=== PATIENT | female | born 1950 | race Caucasian/White ===

== ENCOUNTER 2017-05-28 15:32 | Inpatient (IN) | payer OTHER ==
--- NOTE | 2017-05-24 17:45 | PREOPHP ---
DATE OF ADMISSION: 05/30/2017 PREOPERATIVE INTERNAL MEDICINE CONSULTATION AND MEDICAL HISTORY AND PHYSICAL: The patient to have surgery with Dr. Silvia Mccann on 05/30/2017. REASON FOR CONSULTATION: Consultation requested by Dr. Silvia Mccann for medical evaluation and clearance of a 66-year-old woman about to undergo surgery. Thank you, Dr. Mccann, for allowing us to participate in the care of this patient. HISTORY OF PRESENT ILLNESS: Malachi Corrigan is a 66-year-old woman. Issues with her shoulder, has been diagnosed with a rotator cuff tear on the left shoulder.. Had prior arthroscopic surgery on that shoulder and currently is going to be admitted for a shoulder replacement to reverse total shoulder replacement on the left shoulder. PAST SURGICAL HISTORY: She has had arthroscopic surgery, right and left knee. Right x1, left knee x2, ACL repair left knee x2, rotator cuff surgery, arthroscopic left x2, right x1, and she has also had a total knee replacement on the right. Her pregnancies had vaginal delivery. She has had no medical hospitalizations. She has not broken any big bones. She only takes p.r.n. medications. ALLERGIES: NOT ALLERGIC TO ANY MEDICATIONS, BUT HAS SOME ENVIRONMENTAL ALLERGIES. SOCIAL HISTORY: The patient is , has 2 children. She does not smoke or drink alcohol or coffee. Has no difficulty sleeping at night and works as a teacher. FAMILY HISTORY: Both parents are . Father at age 54 of an IA. Mother age 75 of an IA. Four siblings are in good health. Family history of heart. She knows of no diabetes, cancer, hypertension or stroke. REVIEW OF SYSTEMS HEENT: Periodic headaches. CARDIORESPIRATORY: Denies any chest pain or shortness of breath. GASTROINTESTINAL: No melena or hematemesis. GENITOURINARY: No urgency or frequency. GYNECOLOGIC: Postmenopause, up to date with her skin therapist. MUSCULOSKELETAL: Positive for left shoulder pain. NEUROPSYCHIATRIC: Unremarkable. GENERAL HEALTH: As above. PHYSICAL EXAMINATION: VITAL SIGNS: The patient's blood pressure was 140/80, pulse was 62 and regular , respirations were 18, temperature 98.1. Height 5 feet 2 inches, weight 124 pounds. GENERAL: The patient was noted to be a well-developed, well-nourished female, alert and cooperative, in no apparent acute distress, oriented to time, place, and person. HEAD, EARS, EYES, NOSE AND THROAT: Head was atraumatic. Eyes: Pupils were equal, reactive to light and accommodation. Fundi were benign. Tympanic membranes were unremarkable. Nose was negative. Mouth was unremarkable. Fair oral hygiene was present. NECK: Supple without any rigidity. Trachea was midline. Thyroid was unremarkable. Neck veins were flat. Carotid pulses were equal. No bruits were heard. BACK: Unremarkable. CHEST: Symmetrical. BREASTS AND AXILLARY: Did not reveal any masses. LUNGS: Clear to percussion and auscultation. HEART: PMI is fifth intercostal space at the midclavicular line. Regular sinus rhythm was noted. No significant murmurs, rubs, or gallops being elicited. ABDOMEN: Soft, good bowel sounds were noted. No significant organomegaly, masses, or tenderness. PELVIC/RECTAL: Per skin therapist, up to date. EXTREMITIES: Not revealing clubbing, edema or cyanosis. Scar was noted from prior surgery. Peripheral pulses were physiologic. SKIN: Moist and warm without any eruptions. No gross lymphadenopathy was noted. NEUROLOGIC: Grossly intact. IMPRESSION: 1. Torn rotator cuff, left shoulder status post several arthroscopic surgeries on the left shoulder. 2. Postmenopause. 3. Stable health. LABORATORY DATA: Review of laboratory and other data revealed the following: The patient's chemistry panel including electrolytes, glucose, BUN, creatinine and liver function tests, magnesium, serum iron, CBC, sed rate, UA, PT and PTT were normal. The patient's chest x-ray was normal, as was her EKG. DISCUSSION: Dr. Mccann, I see no contraindication in this patient undergoing current proposed surgery under desired form of anesthesia and will be happy to follow her, her along with you during her stay at [facility]. Thank you again, Dr. Mccann, for allowing us to participate in the care of this pleasant patient. Dictated By: ANGEL BRADSHAW MD SS/MEY Conf#: [id number] DID#: [id number] CC: SILVIA MCCANN MD;*EndCC* MTDD
[~2017-05-28] VITALS: Ht 157.5 cm; Wt 56.0 kg
[2017-05-29 09:53] VITALS: BMI 22.2
[2017-05-30] VITALS (21 sets, daily range): BP systolic 114–159; BP diastolic 51–77; PULSE 62–87; RESP 13–26; Ht 157.5 cm; Wt 56.0 kg
[2017-05-30] MEDS ORDERED: POLYMYXIN/BACITRACIN 1L IRRIG ONE (08:48)
[2017-05-30] MEDS ORDERED: THROMBIN 5000 UNIT VIAL ONE (08:48)
[2017-05-30] MEDS ORDERED: BUPIVACAINE 0.5%/EPI (SDV) 30 ML INJ ONE (08:48)
[2017-05-30] MEDS ORDERED: CA CHLORIDE 10% 10 ML SYRINGE ONE (08:48)
[2017-05-30] MEDS ORDERED: GABAPENTIN 300 MG CAP PO SCH ×2 (09:00→21:00)
[2017-05-30] MEDS ORDERED: traMADol 50 MG TAB PO SCH (09:00)
[2017-05-30] MEDS ORDERED: CEFAZOLIN 2 GM/50 ML (PMX) 50 ML IVPB SCH (09:00)
[2017-05-30] MEDS ORDERED: TRANEXAMIC ACID 1,000 MG in SOD CHLORIDE 0.9% 100 ML IVPB SCH (09:00)
[2017-05-30] MEDS ORDERED: DEXAMETHASONE 1 MG TAB PO SCH (09:00)
--- NOTE | 2017-05-30 09:11 | HPN ---
Date/Time of Note Date/Time of Note DATE: 05/30/17 TIME: 09:10 Interval H&P Admission Note Pt. seen H&P reviewed: No system changes SILVIA MCCANN MD May 30, 2017 09:11
[2017-05-30] MEDS ORDERED: MIDAZOLAM 1 MG/ML 2 ML INJ ONE (09:37)
[2017-05-30] MEDS ORDERED: ROPIVACAINE 0.5 % 30 ML VIAL ONE (09:37)
[2017-05-30] MEDS ORDERED: PHENYLephrine (100 MCG/ML) 5ML SYG ONE (09:59)
[2017-05-30] MEDS ORDERED: BUPIVACAINE 0.5%/EPI (SDV) 30 ML INJ INJ ONE (10:02)
[2017-05-30] MEDS ORDERED: LIDOCAINE 2% (SDV) 5 ML INJ ONE (10:07)
[2017-05-30] MEDS ORDERED: SUCCINYLCHOLINE CHLORIDE 100 MG/5 ML SYG IV ONE (10:07)
[2017-05-30] MEDS ORDERED: ROCURONIUM 50 MG INJ ONE (10:07)
[2017-05-30] MEDS ORDERED: PROPOFOL 20 ML ONE (10:07)
[2017-05-30] MEDS ORDERED: GLYCOPYRROLATE 0.4 MG INJ ONE (10:08)
[2017-05-30] MEDS ORDERED: NEOSTIGMINE 3 MG/3 ML SYRINGE ONE (10:08)
[2017-05-30] MEDS ORDERED: CEFAZOLIN 1 GM INJ ONE (10:08)
[2017-05-30] MEDS ORDERED: METOCLOPRAMIDE 10 MG INJ IV PRN (10:30)
[2017-05-30] MEDS ORDERED: HYDROmorphONE (0.2 MG/ML) 10ML SYG IV PRN ×2 (10:30)
[2017-05-30] MEDS ORDERED: FENTAnyl 50 MCG/ML VIAL IV PRN ×2 (10:30)
[2017-05-30] MEDS ORDERED: DIPHENHYDRAMINE 50 MG INJ IV PRN ×2 (10:30→11:30)
[2017-05-30] MEDS ORDERED: ONDANSETRON 4 MG INJ IV PRN (10:30)
[2017-05-30] MEDS ORDERED: MEPERIDINE 25 MG INJ IV PRN (10:30)
--- NOTE | 2017-05-30 11:18 | OPR ---
Date/Time of Note Date/Time of Note DATE: 05/30/17 TIME: 11:15 Operative Report Free Text/Dictation May 30, 2017 Surgeon: Silvia Mccann MD Stabber: None Procedure in detail: Following the administration of general endotracheal anesthesia supplemented with a scalene block, the patient was placed in the beachchair position. The left upper extremity was prepped and draped in the usual sterile fashion. A deltopectoral incision was then undertaking exposing the conjoined tendon and retracting it medially. The subscapularis was then incised as well as the bicipital groove. The biceps was seen to be nearly completyly torn and severely frayed. The superior and posterior cuff was completely deficient and retracted. Multiple suture anchors were noted. The remaining subscapularis was then detached and the shoulder evaluated. Severe arthritic changes were noted on both sides of the joint. Peripheral osteophytes were removed and a humeral head cut was then made in the appropriate degree of version and inclination. The glenoid was then exposed peripheral osteophytes and a capsulectomy was then completed. A standard Depuy baseplate was then applied. 4 peripheral screws were then applied with good fixation. A 36 mm glenoid sphere was then applied with solid fixation. The humerus was then reamed up to the 10 mm size and a Depuy component was then placed with 6 mm liner. Solid fixation was obtained the joint was taken through full range of motion with no instability. The joint was thoroughly irrigated closed using running sutures followed by a Prenio dressing. A watertight closure was obtained. An UltraSling was then placed. The patient was awakened and transported to recovery in stable condition tolerated procedure well estimated blood loss for the procedure was 100 cc. Postoperative radiographs will be obtained in the recovery room. Preoperative Diagnosis Left shoulder posttraumatic osteoarthritis Postoperative Diagnosis Left shoulder posttraumatic osteoarthritis Operation Performed Left reverse total shoulder replacement Anesthesia: general Estimated Blood Loss: 50 - 100 ml's Complications: None Pt Condition Post Procedure: stable Disposition: PACU SILVIA MCCANN MD May 30, 2017 11:18
[2017-05-30] MEDS ORDERED: ACETAMINOPHEN 500 MG TAB PO PRN (11:30)
[2017-05-30] MEDS ORDERED: KETOROLAC 15 MG INJ IV PRN (11:30)
[2017-05-30] MEDS ORDERED: TRANEXAMIC ACID 1,000 MG in SOD CHLORIDE 0.9% 100 ML IV ONE (11:30)
[2017-05-30] MEDS ORDERED: MAGNESIUM HYDROXIDE 30ML CUP PO PRN (11:30)
[2017-05-30] MEDS ORDERED: morphine 4 MG/ML VIAL IV PRN (11:30)
[2017-05-30] MEDS ORDERED: ZOLPIDEM 5 MG TAB PO PRN (11:30)
[2017-05-30] MEDS ORDERED: morphine 2 MG INJ IV PRN (11:30)
[2017-05-30] MEDS ORDERED: OXYCODONE/ACETAMINOPHEN (5/325) TAB PO PRN (11:30)
--- NOTE | 2017-05-30 11:51 | RADRPT ---
PROCEDURE: XR Left Shoulder. CLINICAL INDICATION: Left shoulder pain. Postop. TECHNIQUE: Two views. Frontal and oblique. COMPARISON: No prior study is available for comparison. FINDINGS: There is a left shoulder reverse arthroplasty. This appears satisfactory. There is no fracture, dislocation, or loosening. Gas is present in the soft tissues related to the recent surgery. IMPRESSION: 1. Satisfactory postoperative appearance of the left shoulder. RPTAT: QQ .Joao Loza MD, MD Date Time Electronically viewed and signed by .Joao Loza MD, MD on 05/30/2017 11:50 .R/
[2017-05-30] MEDS: CEFAZOLIN 1 GM/50 ML (PMX) 50 ML IVPB SCH ×2 (12:16→19:02)
[2017-05-30] MEDS: DEXAMETHASONE 2 MG TAB PO SCH ×3 (13:10→23:57)
--- NOTE | 2017-05-30 13:27 | PN ---
Date/Time of Note Date/Time of Note DATE: 05/30/17 TIME: 13:18 Assessment/Plan VTE Prophylaxis VTE Prophylaxis Intervention: ambulation Lines/Catheters IV Catheter Type (from Nrsg): Peripheral IV Assessment/Plan Chief Complaint/Hosp Course post op tsr left Problems: Assessment/Plan medically stable will follow medically thank you berny branch Subjective 24 Hr Interval Summary Free Text/Dictation post-op in recovery room alert knows my name waiting for a room Constitutional: no complaints Eyes: no complaints ENT: no complaints Respiratory: no complaints Cardiovascular: no complaints Gastrointestinal: no complaints Genitourinary: no complaints Musculoskeletal: restricted range of motion Skin: no complaints Neurologic: no complaints Psychological: no complaints Immunologic: no complaints Exam/Review of Systems Vital Signs Vitals Vital Signs Date Time Temp Pulse Resp B/P Pulse Ox O2 Delivery O2 Flow Rate FiO2 05/30/17 12:32 64 25 143/70 96 Room Air 05/30/17 11:22 98.3 Exam Neck: supple Respiratory: clear to auscultation Cardiovascular: regular rate and rhythm Musculoskeletal: range of motion Skin: nl turgor, No rash or lesions Additional Comments s/p total shoulder replacement left shoulde Medications Medications Current Medications Cefazolin Sodium (Ancef 1 Gm/50 ml (Pmx)) 50 ml @ 100 mls/hr Q8H IVPB Last administered on 05/30/17 12:16; Admin Dose 100 MLS/HR; Start 05/30/17 at 11:30 ; Stop 05/31/17 at 03:59 Senna/Docusate Sodium (Senokot-S) 1 tab BID PO ; Start 05/30/17 at 21:00 Simethicone (Mylicon) 80 mg TID PRN PO DISTENSION/GAS/BLOATING; Start 05/30/17 at 11:30 Magnesium Hydroxide (Milk Of Mag) 30 ml BID PRN PO CONSTIPATION; Start at 11:30 Acetaminophen (Tylenol Tab) 1,000 mg Q4H PRN PO TEMP GREATER THAN 100.4F; Start 05/30/17 at 11:30 Dexamethasone (Decadron) 2 mg Q6 PO Last administered on 05/30/17 13:10; Admin Dose 2 MG; Start 05/30/17 at 12:00; Stop 05/31/17 at 06:01 Gabapentin (Neurontin) 300 mg HS PO ; Start 05/30/17 at 21:00 Oxycodone/ Acetaminophen (Percocet (5/ 325)) 1 tab Q4H PRN PO PAIN LEVEL 1-5; Start 05/30/17 at 11:30 Oxycodone/ Acetaminophen (Percocet (5/ 325)) 2 tab Q4H PRN PO PAIN LEVEL 6-10; Start 05/30/17 at 11:30 Morphine Sulfate (morphine) 2 mg Q2H PRN IV PAIN LEVEL 1-5; Start 05/30/17 at 11:30 Morphine Sulfate (morphine) 4 mg Q4H PRN IV PAIN LEVEL 6-10; Start 05/30/17 at 11:30 Ketorolac Tromethamine (Toradol) 15 mg Q6H PRN IV PAIN; Start 05/30/17 at 11:30 ; Stop 06/02/17 at 11:29 Ondansetron HCl (Zofran Inj) 4 mg Q6H PRN IV NAUSEA AND/OR VOMITING; Start at 11:30 Diphenhydramine HCl (Benadryl) 25 mg Q6H PRN IV PRURITUS; Start 05/30/17 at 11: 30 Aspirin (Aspirin) 81 mg DAILY PO ; Start 05/31/17 at 09:00 ANGEL BRADSHAW MD May 30, 2017 13:27
[2017-05-30] MEDS: ONDANSETRON 4 MG INJ IV PRN (20:35)
[2017-05-30] MEDS: OXYCODONE/ACETAMINOPHEN (5/325) TAB PO PRN (21:39)
[2017-05-30] MEDS: SENNA/DOCUSATE NA (8.6MG/50MG) TAB PO SCH (21:39)
[2017-05-31] MEDS: ONDANSETRON 4 MG INJ IV PRN (02:59)
[2017-05-31] MEDS: CEFAZOLIN 1 GM/50 ML (PMX) 50 ML IVPB SCH (03:37)
--- NOTE | 2017-05-31 05:08 | PDOCDIS ---
Discharge Instructions DIAGNOSIS Discharge Diagnosis Left shoulder rotator cuff tear arthropathy CONDITION Patient Condition: Good HOME CARE INSTRUCTIONS: Diet Instructions: RegularSpecial Diet: SOFT DIET WILL ADVANCE TO REG ACTIVITY: Activity Restrictions: Slowly Increase Activity Keep Limb Elevated Bathing Restrictions: Shower FOLLOW UP/APPOINTMENTS Follow-up Plan 2 weeks SCHOOL/WORK RELEASE May return to School/Work with: With Restrictions School/Work Release Comment: 5 pounds tabletop usage for 6 weeks SILVIA MCCANN MD May 31, 2017 05:08
--- NOTE | 2017-05-31 05:09 | DS ---
Date/Time of Note Date/Time of Note DATE: 05/31/17 TIME: 05:08 Discharge Summary Admission/Discharge Info Admit Date/Time May 30, 2017 following clearance by Occupational Therapy Discharge Date/Time May 31, 2017 following clearance by Occupational Therapy Discharge Diagnosis Left shoulder rotator cuff tear arthropathy Patient Condition: Good Procedures Left reverse total shoulder replacement Hx of Present Illness Pain and stiffness following failed rotator cuff surgery Hospital Course Patient was admitted and underwent an uncomplicated reverse total shoulder replacement discharged following occupational therapy the next morning Home Meds No Active Prescriptions or Reported Meds Primary Care Provider Not On Staff Doctor SILVIA MCCANN MD May 31, 2017 05:09
--- NOTE | 2017-05-31 05:37 | PN ---
Date/Time of Note Date/Time of Note DATE: 05/31/17 TIME: 05:36 24 hour Interval Summary Patient is awake and alert. She is having some mild pain at this point. Physical examination: She is neurologically intact, her wound is clean and dry. She has no signs of DVT. Impression: Status post total shoulder replacement Plan: She will go through occupational therapy this morning and be discharged following the clearance by them. Physical Exam Vital Signs Date Time Temp Pulse Resp B/P Pulse Ox O2 Delivery O2 Flow Rate FiO2 05/30/17 21:12 98.5 81 20 131/61 98 05/30/17 17:00 Room Air Intake and Output 05/30/17 05/30/17 05/31/17 15:00 23:00 07:00 Intake Total 1100 ml 550 ml 700 ml Output Total 5 ml 250 ml 50 ml Balance 1095 ml 300 ml 650 ml VTE Prophylaxis VTE Prophylaxis Intervention: anti-embolic stocking Lines/Catheters IV Catheter Type: Saline Lock Clarke in Place: No Assessment/Plan Chief Complaint/Hosp Course Patient was admitted and underwent an uncomplicated reverse total shoulder replacement discharged following occupational therapy the next morning Problems: Medications Medications Home Meds No Active Prescriptions or Reported Meds SILVIA MCCANN MD May 31, 2017 05:37
[2017-05-31] MEDS: DEXAMETHASONE 2 MG TAB PO SCH (06:01)
[2017-05-31 07:00] VITALS: BP 116/54; RESP 18
[2017-05-31] MEDS ORDERED: ASPIRIN 81 MG TAB PO SCH (09:00)
[2017-05-31] MEDS: SENNA/DOCUSATE NA (8.6MG/50MG) TAB PO SCH (09:22)
--- NOTE | 2017-05-31 09:37 | PN ---
Date/Time of Note Date/Time of Note DATE: 05/31/17 TIME: 09:32 Assessment/Plan VTE Prophylaxis VTE Prophylaxis Intervention: ambulation Lines/Catheters [facility] Saline Lock Urinary Cath still in place: No Assessment/Plan Chief Complaint/Hosp Course post op tsr left Problems: Assessment/Plan plan per medically stable. Subjective 24 Hr Interval Summary Constitutional: no complaints Eyes: no complaints ENT: no complaints Gastrointestinal: no complaints Genitourinary: no complaints Musculoskeletal: restricted range of motion Skin: no complaints Neurologic: no complaints Endocrine: no complaints Lymphatic: no complaints Psychological: no complaints Immunologic: no complaints Additional Comments post op shoulder surger Exam/Review of Systems Vital Signs Vitals Vital Signs Date Time Temp Pulse Resp B/P Pulse Ox O2 Delivery O2 Flow Rate FiO2 05/31/17 07:00 98.4 62 18 116/54 98 05/30/17 17:00 Room Air Intake and Output 05/30/17 05/30/17 05/31/17 15:00 23:00 07:00 Intake Total 1100 ml 550 ml 700 ml Output Total 5 ml 250 ml 50 ml Balance 1095 ml 300 ml 650 ml Exam Neck: supple Respiratory: clear to auscultation Cardiovascular: regular rate and rhythm Extremities: other (post op sh) Neurological: WOOD COATER II-XII intact, nl mental status, nl speech, nl strength Skin: nl turgor, No rash or lesions Lymph: nl lymph nodes Additional Comments post op shoulder replacement Medications Medications Current Medications Senna/Docusate Sodium (Senokot-S) 1 tab BID PO Last administered on 05/31/17 09:22; Admin Dose 1 TAB; Start 05/30/17 at 21:00 Simethicone (Mylicon) 80 mg TID PRN PO DISTENSION/GAS/BLOATING; Start 05/30/17 at 11:30 Magnesium Hydroxide (Milk Of Mag) 30 ml BID PRN PO CONSTIPATION; Start at 11:30 Acetaminophen (Tylenol Tab) 1,000 mg Q4H PRN PO TEMP GREATER THAN 100.4F; Start 05/30/17 at 11:30 Gabapentin (Neurontin) 300 mg HS PO Last administered on 05/30/17 21:39; Admin Dose 300 MG; Start 05/30/17 at 21:00 Oxycodone/ Acetaminophen (Percocet (5/ 325)) 1 tab Q4H PRN PO PAIN LEVEL 1-5 Last administered on 05/30/17 21:39; Admin Dose 1 TAB; Start 05/30/17 at 11:30 Oxycodone/ Acetaminophen (Percocet (5/ 325)) 2 tab Q4H PRN PO PAIN LEVEL 6-10 Last administered on 05/31/17 01:47; Admin Dose 2 TAB; Start 05/30/17 at 11:30 Morphine Sulfate (morphine) 2 mg Q2H PRN IV PAIN LEVEL 1-5; Start 05/30/17 at 11:30 Morphine Sulfate (morphine) 4 mg Q4H PRN IV PAIN LEVEL 6-10 Last administered on 05/30/17 23:00; Admin Dose 4 MG; Start 05/30/17 at 11:30 Ketorolac Tromethamine (Toradol) 15 mg Q6H PRN IV PAIN Last administered on 02:55; Admin Dose 15 MG; Start 05/30/17 at 11:30; Stop 06/02/17 at 11:29 Ondansetron HCl (Zofran Inj) 4 mg Q6H PRN IV NAUSEA AND/OR VOMITING Last administered on 05/31/17 02:59; Admin Dose 4 MG; Start 05/30/17 at 11:30 Diphenhydramine HCl (Benadryl) 25 mg Q6H PRN IV PRURITUS; Start 05/30/17 at 11: 30 Aspirin (Aspirin) 81 mg DAILY PO Last administered on 05/31/17 09:22; Admin Dose 81 MG; Start 05/31/17 at 09:00 ANGEL BRADSHAW MD May 31, 2017 09:37
--- NOTE | 2017-05-31 12:24 | CONS ---
Date/Time of Note Date/Time of Note DATE: 05/31/17 TIME: 12:21 Consultation Date/Type/Reason Admit Date/Time May 30, 2017 at 06:26 Initial Consult Date 05/31/17 Type of Consultation: Anesthesiology Reason for Consultation Follow up 24 HR Interval Summary Free Text/Dictation Pt seen and examined at bedside is POD#1 s/p reverse shoulder replacement. Pt received a single shot interscalene block for post op pain relief. She states her pain is currently controlled. No numbness in her extremity. Pt states she has considerable N/V which is her usual post anesthesia despite being given multiple medications to prevent N/V. No D/C/BOATENG. Will continue to follow. Constitutional: improved Exam/Review of Systems Vital Signs Vitals Vital Signs Date Time Temp Pulse Resp B/P Pulse Ox O2 Delivery O2 Flow Rate FiO2 05/31/17 07:00 98.4 62 18 116/54 98 05/30/17 17:00 Room Air Intake and Output 05/30/17 05/30/17 05/31/17 15:00 23:00 07:00 Intake Total 1100 ml 550 ml 700 ml Output Total 5 ml 250 ml 50 ml Balance 1095 ml 300 ml 650 ml Medications Medications Current Medications Senna/Docusate Sodium (Senokot-S) 1 tab BID PO Last administered on 05/31/17 09:22; Admin Dose 1 TAB; Start 05/30/17 at 21:00 Simethicone (Mylicon) 80 mg TID PRN PO DISTENSION/GAS/BLOATING; Start 05/30/17 at 11:30 Magnesium Hydroxide (Milk Of Mag) 30 ml BID PRN PO CONSTIPATION; Start at 11:30 Acetaminophen (Tylenol Tab) 1,000 mg Q4H PRN PO TEMP GREATER THAN 100.4F; Start 05/30/17 at 11:30 Gabapentin (Neurontin) 300 mg HS PO Last administered on 05/30/17 21:39; Admin Dose 300 MG; Start 05/30/17 at 21:00 Oxycodone/ Acetaminophen (Percocet (5/ 325)) 1 tab Q4H PRN PO PAIN LEVEL 1-5 Last administered on 05/30/17 21:39; Admin Dose 1 TAB; Start 05/30/17 at 11:30 Oxycodone/ Acetaminophen (Percocet (5/ 325)) 2 tab Q4H PRN PO PAIN LEVEL 6-10 Last administered on 05/31/17 01:47; Admin Dose 2 TAB; Start 05/30/17 at 11:30 Morphine Sulfate (morphine) 2 mg Q2H PRN IV PAIN LEVEL 1-5; Start 05/30/17 at 11:30 Morphine Sulfate (morphine) 4 mg Q4H PRN IV PAIN LEVEL 6-10 Last administered on 05/30/17 23:00; Admin Dose 4 MG; Start 05/30/17 at 11:30 Ketorolac Tromethamine (Toradol) 15 mg Q6H PRN IV PAIN Last administered on 02:55; Admin Dose 15 MG; Start 05/30/17 at 11:30; Stop 06/02/17 at 11:29 Ondansetron HCl (Zofran Inj) 4 mg Q6H PRN IV NAUSEA AND/OR VOMITING Last administered on 05/31/17 02:59; Admin Dose 4 MG; Start 05/30/17 at 11:30 Diphenhydramine HCl (Benadryl) 25 mg Q6H PRN IV PRURITUS; Start 05/30/17 at 11: 30 Aspirin (Aspirin) 81 mg DAILY PO Last administered on 05/31/17 09:22; Admin Dose 81 MG; Start 05/31/17 at 09:00 SOULEYMANE CHILEL May 31, 2017 12:23
[2017-05-31] MEDS: OXYCODONE/ACETAMINOPHEN (5/325) TAB PO PRN (13:49)
== END 2017-05-31 16:25 | disposition home or self-care (01) | DRG 483 ==
LOC: UNDOADMIN 15:32 → REC 15:32 → EDSTATUS 05-30 08:30 → MS1 05-30 13:26
PROVIDERS: ADMIT Orthopaedic Surgery; ATTEND Orthopaedic Surgery
PROC: 0RRK00Z Replacement of Left Shoulder Joint with Reverse Ball and Socket Synthetic Substitute, Open Approach (ICD-10-PCS; principal; 2017-05-30 09:30)
DX: M19.112 Post-traumatic osteoarthritis, left shoulder (principal); M75.102 Unspecified rotator cuff tear or rupture of left shoulder, not specified as traumatic; Z96.651 Presence of right artificial knee joint
CPT/HCPCS: 73030; 86999; 97161; C1776; J0690; J1885; J2250; J2270; J2370; J2405; J2710; J2795; J7999